=== PATIENT | female | born 1995 | race Caucasian/White ===

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

== ENCOUNTER 2017-03-06 13:58 | Emergency (ER) | payer OTHER ==
[~2017-03-06] VITALS: Ht 175.3 cm; Wt 62.4 kg
[~2017-03-06 13:58] MED LIST changes: +CETI10TA10 PO; -TRAM-10 PO
[2017-03-06 14:03] VITALS: TEMP 36.7; Ht 175.3 cm; Wt 62.4 kg
[2017-03-06] MEDS ORDERED: SODIUM CHLORIDE 0.9% 1000ML 1,000 ML IV STA (16:00)
[2017-03-06] MEDS ORDERED: ACETAMINOPHEN 500 MG TAB PO STA (16:00)
[2017-03-06] MEDS ORDERED: CEFTRIAXONE SOD INJ 1 GM ADDVIAL IV STA (16:00)
[2017-03-06 16:12] LABS: BASO % 0.3 %; BASO ABS # 0.02 K/uL (0-0.2); COMPLETE YES; EOS % 0.7 %; IG% 0.3 %; LYMPH % 35.6 %; LYMPH ABS # 2.47 K/uL (1.2-3.4); MEAN CELL VOLUME 96.9 fL (80-100); MEAN CORPUSCULAR HEMOGLOBIN 33.2 pg (25-34); MEAN CORPUSCULAR HGB CONC 34.3 g/dl (32-36); MEAN PLATELET VOLUME 10.8 fL (7.4-10.4); MONO % 5.8 %; NEUT % 57.3 %; PLATELET COUNT 189 K/uL (130-400); RED BLOOD COUNT 4.13 M/uL (4.2-5.4); WHITE BLOOD COUNT 6.94 K/uL (4.8-10.8)
[2017-03-06 16:19] LABS: PREG INTERNAL NEGATIVE QC NEG CLEAR BACKGROUND; PREG INTERNAL POSITIVE QC POS CONTROL LINE
[2017-03-06 16:21] LABS: BLOOD UREA NITROGEN 8 mg/dl (7-18); BUN/CREATININE RATIO 14.1 (10-20); CARBON DIOXIDE 29 mmol/L (21-32); CHLORIDE 107 mmol/L (98-107); CREATININE 0.59 mg/dl (0.60-1.20); GLUCOSE 84 mg/dl (70-99); POTASSIUM 3.9 mmol/L (3.5-5.1); SODIUM 140 mmol/L (136-145)
[2017-03-06 16:27] LABS: URINE APPEARANCE CLEAR (CLEAR); URINE BILIRUBIN NEG (NEG); URINE COLOR YELLOW; URINE EPITHELIAL CELL AUTO >30 /lpf (0-5); URINE NITRITE NEG (NEG); URINE PH 8.5 (4.5-7.5); URINE SPECIFIC GRAVITY 1.011 (1.000-1.030); UROBILINOGEN NEG (NEG); ZZUR CULT IF INDIC CLEAN CATCH YES
[2017-03-06 16:28] LABS: MANUAL MICROSCOPIC REQUIRED? NO; REVIEW REQ? NO
--- NOTE | 2017-03-06 17:38 | DIAGNOSTIC IMAGING REPORT ---
(RENAL)RETROPERITONEA COMP HISTORY: Flank pain flank pain, posse hydro COMPARISON: None. FINDINGS: Right kidney: Maximum dimension 10.3 cm. No evidence for hydronephrosis. Normal corticomedullary differentiation and cortical thickness. Left kidney: Maximum dimension 10.6 cm. No evidence for hydronephrosis. Normal corticomedullary differentiation and cortical thickness. Bladder: Trace amount of bladder debris IMPRESSION: 1. Normal kidneys. 2. No evidence for hydronephrosis. 3. Small amount of bladder debris The above report was generated using voice recognition software. It may contain grammatical, syntax or spelling errors. Electronically signed by: Josef Joe M.D. 03/06/2017 5:37 PM Dictated Date/Time: 03/06/2017 5:36 PM
[2017-03-06] MEDS ORDERED: CIPROFLOXACIN 500 MG TAB PO STA (18:05)
[2017-03-06] MEDS ORDERED: CIPR-255 PO (18:08)
[2017-03-06 18:25] VITALS: BP 100/67; PULSE 66; O2SAT 98
--- NOTE | 2017-03-06 19:27 | EMERGENCY ROOM VISIT NOTE ---
History Report prepared by Akshat: [facility] Under the Supervision of: Dr. Antoine Sampson M.D. First contact with patient: 15:46 Chief Complaint: URINARY SYMPTOMS Stated Complaint: UTI,LOWER ABDOMINAL KELSEY, BACK PAIN Nursing Triage Summary: triage note: pt reports uti symptoms since tuesday. pt reports lower abd pressure and pain since tuesday. "My lower back has been hurting since tuesday." pt reports continued urinary discomfor. History of Present Illness The patient is a 22 year old female who presents to the Emergency Room with complaints of an episode of urinary symptoms starting 2 days ago. The patient states that she has had bladder infections before and when this started it felt similar to that. She states that her last bladder infection was a year and a half ago and she responded well to antibiotics. She notes that she has been urinating at a normal frequency, but is having extreme discomfort with it. She states that yesterday she started to develop a pressure in her lower abdomen and lower back. The patient complains of chills and nausea. She currently rates her pain as a 7/10 in severity. The patient denies fever, vomiting, chance of , vaginal discharge, a history of kidney infection before, any abdominal surgeries, and a history of kidney stones. The patient notes she has a history of asthma. Source of History: patient Onset: 2 days ago Position: other (global) Symptom Intensity: 7/10 Quality: other (global) Timing: other (episode) Associated Symptoms: + chills, + nausea, + abdominal pain, + back pain, No fevers, No vomiting Note: The patient denies chance of , vaginal discharge, a history of kidney infection before, any abdominal surgeries, and a history of kidney stones Review of Systems See HPI for pertinent positives & negatives. A total of 10 systems reviewed and were otherwise negative. Past Medical & Surgical Medical Problems: (1) Asthma Family History No pertinent family history Social History Smoking Status: Never Smoker Alcohol Use: none Drug Use: none Marital Status: in relationship Housing Status: lives with roommate Occupation Status: [employer] student Current/Historical Medications Scheduled Control Pills ( Control Pills), 1 TAB PO DAILY Cetirizine Hcl (Zyrtec), 10 MG PO DAILY Ciprofloxacin Hcl (Cipro), 500 MG PO BID Allergies Coded Allergies: No Known Allergies (Unverified , 9/10/17) Physical Exam Vital Signs Date Time Temp Pulse Resp B/P (MAP) Pulse Ox O2 Delivery O2 Flow Rate FiO2 03/06/17 18:25 66 18 100/67 98 03/06/17 17:10 66 18 100/67 98 Room Air 03/06/17 15:45 72 18 106/66 97 Room Air 03/06/17 14:03 36.7 77 18 122/76 95 Room Air Physical Exam GENERAL: Patient is in no acute distress. HEENT: No acute trauma, normocephalic atraumatic, mucous membranes moist, no nasal congestion, no scleral icterus. NECK: No stridor, no adenopathy, no meningismus, trachea is midline. LUNGS: Clear to auscultation bilaterally, no wheeze, no rhonchi, breath sounds equal. HEART: Without murmurs gallops or rubs, regular rate and rhythm. ABDOMEN: Soft, mildly tender in LUQ, bowel sounds positive, no hernias, no peritonitis BACK: Left more so than right flank discomfort with percussion.. EXTREMITIES: No cyanosis or edema, full range of motion of all the joints without pain or difficulty, no signs for acute trauma. NEUROLOGIC: Oriented x 3, no acute motor or sensory deficits, no focal weakness. SKIN: No rash, no jaundice, no diaphoresis. Medical Decision & Procedures ER Provider Diagnostic Interpretation: Radiology results as stated below per my review and radiologist interpretation: (RENAL)RETROPERITONEA COMP HISTORY: Flank pain flank pain, posse hydro COMPARISON: None. FINDINGS: Right kidney: Maximum dimension 10.3 cm. No evidence for hydronephrosis. Normal corticomedullary differentiation and cortical thickness. Left kidney: Maximum dimension 10.6 cm. No evidence for hydronephrosis. Normal corticomedullary differentiation and cortical thickness. Bladder: Trace amount of bladder debris IMPRESSION: 1. Normal kidneys. 2. No evidence for hydronephrosis. 3. Small amount of bladder debris The above report was generated using voice recognition software. It may contain grammatical, syntax or spelling errors. Electronically signed by: Josef Joe M.D. 03/06/2017 5:37 PM Dictated Date/Time: 03/06/2017 5:36 PM Laboratory Results 03/06/17 15:50 Red Blood Count 4.13, Mean Corpuscular Volume 96.9, Mean Corpuscular Hemoglobin 33.2, Mean Corpuscular Hemoglobin Concent 34.3, Mean Platelet Volume 10.8, Neutrophils (%) (Auto) 57.3, Lymphocytes (%) (Auto) 35.6, Monocytes (%) (Auto) 5.8, Eosinophils (%) (Auto) 0.7, Basophils (%) (Auto) 0.3, Neutrophils # (Auto) 3.98, Lymphocytes # (Auto) 2.47, Monocytes # (Auto) 0.40, Eosinophils # (Auto) 0.05, Basophils # (Auto) 0.02 03/06/17 15:50 Test 03/06/17 15:40 03/06/17 15:50 Urine Color YELLOW Urine Appearance CLEAR (CLEAR) Urine pH 8.5 (4.5-7.5) Urine Specific [place] 1.011 (1.000-1.030) Urine Protein NEG (NEG) Urine Glucose (UA) NEG (NEG) Urine Ketones NEG (NEG) Urine Occult Blood TRACE (NEG) Urine Nitrite NEG (NEG) Urine Bilirubin NEG (NEG) Urine Urobilinogen NEG (NEG) Urine Leukocyte Esterase SMALL (NEG) Urine WBC (Auto) >30 /hpf (0-5) Urine RBC (Auto) 5-10 /hpf (0-4) Urine Hyaline Casts (Auto) 1-5 /lpf (0-5) Urine Epithelial Cells (Auto) >30 /lpf (0-5) Urine Bacteria (Auto) NEG (NEG) White Blood Count 6.94 K/uL (4.8-10.8) Red Blood Count 4.13 M/uL (4.2-5.4) Hemoglobin 13.7 g/dL (12.0-16.0) Hematocrit 40.0 % (37-47) Mean Corpuscular Volume 96.9 fL (80-100) Mean Corpuscular Hemoglobin 33.2 pg (25-34) Mean Corpuscular Hemoglobin Concent 34.3 g/dl (32-36) Platelet Count 189 K/uL (130-400) Mean Platelet Volume 10.8 fL (7.4-10.4) Neutrophils (%) (Auto) 57.3 % Lymphocytes (%) (Auto) 35.6 % Monocytes (%) (Auto) 5.8 % Eosinophils (%) (Auto) 0.7 % Basophils (%) (Auto) 0.3 % Neutrophils # (Auto) 3.98 K/uL (1.4-6.5) Lymphocytes # (Auto) 2.47 K/uL (1.2-3.4) Monocytes # (Auto) 0.40 K/uL (0.11-0.59) Eosinophils # (Auto) 0.05 K/uL (0-0.5) Basophils # (Auto) 0.02 K/uL (0-0.2) RDW Standard Deviation 44.5 fL (36.4-46.3) RDW Coefficient of Variation 12.8 % (11.5-14.5) Immature Granulocyte % (Auto) 0.3 % Immature Granulocyte # (Auto) 0.02 K/uL (0.00-0.02) Anion Gap 4.0 mmol/L (3-11) Est Creatinine Clear Calc Drug Dose 149.8 ml/min Estimated GFR () > 150.0 Estimated GFR (Non- 131.9 BUN/Creatinine Ratio 14.1 (10-20) Calcium Level 9.0 mg/dl (8.5-10.1) Human Chorionic Gonadotropin, Qual NEG (NEG) Laboratory results reviewed by me. Medications Administered Medications (Trade) Dose Ordered Sig/Sylvester Route Start Time Stop Time Status Last Admin Dose Admin Sodium Chloride 1,000 ml @ 999 mls/hr Q1H1M STAT IV 03/06/17 16:00 03/06/17 17:00 DC 03/06/17 17:06 999 MLS/HR Acetaminophen (Tylenol Tab) 1,000 mg NOW STAT PO 03/06/17 16:00 03/06/17 16:04 DC 03/06/17 17:07 1,000 MG Ceftriaxone Sodium (Rocephin Inj) 1 gm NOW STAT IV 03/06/17 16:00 03/06/17 16:04 DC 03/06/17 17:06 1 GM Ciprofloxacin (Cipro Tab) 500 mg NOW STAT PO 03/06/17 18:05 03/06/17 18:06 DC 03/06/17 18:21 500 MG ED Course 1558: The patient was evaluated in room C11B. A complete history and physical exam was performed. 1600: Ordered Rocephin Inj 1 gm IV, Tylenol Tab 1000 mg PO, NSS 1000 ml @ 999 mls/hr IV. 1803: Reevaluated the patient. Discussed results and discharge instructions: he verbalized understanding and agreement. The patient is ready for discharge. 180: Ordered Cipro Tab 500 mg PO. Medical Decision Differential diagnoses include pyelonephritis, UTI, renal failure, dehydration, PID, , hydronephrosis. There is no leukocytosis or concerning anemia. No significant electrolyte abnormality or kidney failure. testing is negative. Urinalysis does suggest infection, urine culture is pending. Renal ultrasound does not show any hydronephrosis. The patient received IV saline, IV ceftriaxone and oral Tylenol. She was given a dose of oral Cipro. The patient has early pyelonephritis. I do think she is stable for discharge. She is going to be on Cipro twice a day for 10 days, [id number] pain medication, hydration and rest were encouraged. If worsening or not improving, she will return for reassessment. Impression Primary Impression: Pyelonephritis Scribe Attestation The scribe's documentation has been prepared under my direction and personally reviewed by me in its entirety. I confirm that the note above accurately reflects all work, treatment, procedures, and medical decision making performed by me. Departure Information Dispostion Home / Self-Care Prescriptions Ciprofloxacin Hcl (CIPRO) 500 Mg Tab 500 MG PO BID, #20 TAB Prov: Antoine Sampson M.D. 03/06/17 Referrals No Doctor, Assigned (PCP) Forms HOME CARE DOCUMENTATION FORM, IMPORTANT VISIT INFORMATION Patient Instructions My [facility] Additional Instructions fluids rest motrin and or tylenol for pain and aches cipro 2x per day for 10 days return for worsening symptoms, if not improving, or if have fever and vomiting kidney ultrasound today was ok
== END 2017-03-06 18:26 | disposition home or self-care (01) ==
LOC: C.EDB 14:00 → C.EDC 18:26
DX: N12 Tubulo-interstitial nephritis, not specified as acute or chronic (principal); J45.909 Unspecified asthma, uncomplicated; Z79.3 Long term (current) use of hormonal contraceptives; Z79.899 Other long term (current) drug therapy

== ENCOUNTER → 2018-02-18 | Outpatient (CLI) | payer OTHER ==
[~2018-02-18] MED LIST changes: +AZIT250T PO; +CIPR-255 PO; +PRED20TA2 PO
== END | disposition home or self-care (01) ==
LOC: C.LAB 04:57
DX: Z02.83 Encounter for blood-alcohol and blood-drug test (principal)